=== PATIENT | male | born 1980 | race Caucasian/White ===

== ENCOUNTER 2017-01-20 09:11 | Emergency (ER) | payer SELFPAY ==
[~2017-01-20] VITALS: Ht 172.7 cm; Wt 65.0 kg
[~2017-01-20 09:11] MED LIST: BACT2OIN TOP; BACT800T5 PO; CLIN150 PO; LORTA5 PO
[2017-01-20 09:13] VITALS: BP 135/85; PULSE 89; RESP 16; TEMP 98.5; O2SAT 100
[2017-01-20] MEDS ORDERED: IBUPROFEN 600 MG TAB PO ONE (09:30)
[2017-01-20] MEDS ORDERED: predniSONE 50 MG TAB PO ONE (09:30)
--- NOTE | 2017-01-20 09:30 | PD ---
HPI Chief Complaint: Injury Time Seen by Provider: 09:30 Travel History International Travel<30 days: No Contact w/Intl Traveler<30days: No Traveled to known affect area: No History of Present Illness HPI 36-year-old male presents to the emergency Department with complaint of left knee pain and swelling times one week. 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 Denies injury. Denies fever, vomiting. Denies paresthesias, loss of sensation, decreased range of motion, decreased strength to the affected extremity. He is ambulatory on the affected extremity. Has been taking ibuprofen for symptom management. Has not tried any other treatments to alleviate his symptoms. Allergies to penicillin. Has no other medical complaints. No other modifying factors or associated signs and symptoms. PFSH Past Medical History Hx Anticoagulant Therapy: No Cardiovascular Problems: No Chemotherapy: No Cerebrovascular Accident: No Diabetes: No Respiratory: No Seizures: Yes (epilepsy) Social History Alcohol Use: Yes (social) Tobacco Use: Yes ( 1ppd) Substance Use: No (patient denies.) Allergies-Medications (Allergen,Severity, Reaction): Coded Allergies: Penicillin (Verified Allergy, Mild, RASH, 01/20/17) *MDRO Multi-Drug Resistant Organism (Verified Adverse Reaction, Unknown, ) MRSA (leg-9) Reported Meds & Prescriptions Reported Meds & Active Scripts Active Deltasone (Prednisone) 20 Mg Tab 40 Mg PO DAILY 4 Days start 01/21/2017 Ibuprofen 800 Mg Tab 800 Mg PO Q6HR PRN Review of Systems Except as stated in HPI: all other systems reviewed are Neg Physical Exam Narrative GENERAL: Well-nourished, well-developed male patient, in no acute distress; afebrile, nontoxic-appearing SKIN: Warm and dry. HEAD: Atraumatic. Normocephalic. EYES: Pupils equal and round. No scleral icterus. No injection or drainage. ENT: Mucosa pink and moist. Airway patent. NECK: Trachea midline. CARDIOVASCULAR: Regular rate. RESPIRATORY: No accessory muscle use. GASTROINTESTINAL: Flat. MUSCULOSKELETAL: Left knee edematous over the patella, with mild erythema and warmth to touch, and without ecchymosis; full range of motion and flexion to 90 ; point tenderness to the patellar aspect; joint stable with negative drawer test; no obvious deformity. Left Lower extremity is supple and non-tense with 2 + pedal pulse and sensory intact and without erythema or edema. Ambulatory in room with normal gait. NEUROLOGICAL: Awake and alert. Oriented 3. No obvious cranial nerve deficits. Motor grossly within normal limits. Normal speech. PSYCHIATRIC: Appropriate mood and affect; insight and judgment normal. Data Data Last Documented VS Vital Signs Date Time Temp Pulse Resp B/P Pulse Ox O2 Delivery O2 Flow Rate FiO2 01/20/17 09:13 98.5 89 16 135/85 100 Orders Knee, Complete (4vws) (01/20/17 09:28) Ibuprofen (Motrin) (01/20/17 09:30) Prednisone (Deltasone) (01/20/17 09:30) Prednisone (Deltasone) (01/20/17 10:00) [facility] Medical Decision Making Medical Screen Exam Complete: Yes Emergency Medical Condition: Yes Medical Record Reviewed: Yes Differential Diagnosis Bursitis, osteoarthritis, gout, less likely septic joint Narrative Course 36-year-old male with swelling and pain to the patellar aspect of the left knee. Suspecting bursitis. Denies injury. 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 I will x-ray the knee. Patient is afebrile and nontoxic-appearing. The area of swelling to the knee has some mild erythema and warmth to touch. I do not suspect septic joint; the knee has full range of motion. I will prescribe clindamycin for home. Deltasone and ibuprofen administered in the ER. Left knee x-ray ordered. 1008: Left knee x-ray concludes: Last 24 hours Impressions Knee X-Ray 01/20/17927 Signed Impressions: Service Date/Time: Friday, January 20, 2017 09:39 - CONCLUSION: Soft tissue swelling patella otherwise negative. John Sutton MD FACR Clindamycin, Ibuprofen and Deltasone prescribed for home. I offered the patient crutches for support and he declined. Work release provided. Patient verbalizes understanding and agreement with treatment plan. Patient is medically cleared and stable for discharge. Discussed reasons to return to the emergency department. Instructed patient to follow up with primary care provider. Patient agrees with treatment plan. The patients vital signs are stable and the patient is stable for outpatient follow-up and treatment. Patient discharged home, stable and in no acute distress. Diagnosis Primary Impression: Pain and swelling of left knee Referrals: Orthopedist Primary Care Physician Patient Instructions: General Instructions, Knee Bursitis (ED), Knee Pain (ED) Departure Forms: Tests/Procedures, Work Release Enter return to work date: Jan 24, 2017 Additional Instructions: Tylenol or ibuprofen as needed and as directed to reduce pain and inflammation Rest, ice, compress, and elevate extremity to decrease pain and inflammation Kneepads for support while working Avoid aggravating activity; increase activity as tolerated Follow-up with primary care provider Follow-up with orthopedics Return to the emergency department immediately with worsening symptoms Med/Other Pt SpecificInfo: Prescription(s) given Scripts Clindamycin 150 Mg [id number] Mg PO Q6H 10 Days Ref 0 Prov:Ivone Johnston 01/20/17 Prednisone (Deltasone)20 Mg Tab40 Mg PO DAILY 4 Days Ref 0 start 01/21/2017 Prov:Ivone Johnston 01/20/17 Ibuprofen 800 Mg [id number] Mg PO Q6HR PRN (PAIN) #30 TAB Ref 0 Prov:Ivone Johnston 01/20/17 Disposition: 01 DISCHARGE HOME Condition: Stable Ivone Johnston Jan 20, 2017 09:30
--- NOTE | 2017-01-20 09:59 | RADRPT ---
EXAM DATE/TIME: 01/20/2017 09:39 [facility] COMPARISON: No previous studies available for comparison. INDICATIONS : Left knee swelling and pain. MEDICAL HISTORY : None. SURGICAL HISTORY : None. ENCOUNTER: Initial ACUITY: 4 - 6 days PAIN SCORE: 5/10 LOCATION: Left entire knee. FINDINGS: There is soft tissue swelling over the patella. There is no joint effusion. Alignment is anatomic. No fracture CONCLUSION: Soft tissue swelling patella otherwise negative. John Sutton MD FACR on January 20, 2017 at 9:56 Board Certified Radiologist. This report was verified electronically.
[2017-01-20] MEDS ORDERED: predniSONE 20 MG TAB PO ONE (10:00)
[2017-01-20] MEDS ORDERED: PRED-503 PO (10:10)
[2017-01-20] MEDS ORDERED: IBUP800T23 PO (10:10)
[2017-01-20] MEDS ORDERED: CLIN1CAP5 PO (10:14)
== END 2017-01-20 10:21 | disposition home or self-care (01) ==
LOC: NEPK 09:11
DX: M25.562 Pain in left knee (principal); F17.210 Nicotine dependence, cigarettes, uncomplicated
CPT/HCPCS: 73564; 99284; J7512